=== PATIENT | female | born 1950 | race Caucasian/White ===

== ENCOUNTER 2020-04-08 09:57 | Outpatient (REF) | payer MEDICARE, MEDICAID, SELFPAY ==
[2020-04-08 11:44] LABS: Anion Gap 12 (12-20); Blood Urea Nitrogen 10 mg/dL (9-16); Calcium 9.7 mg/dL (8.4-10.2); Carbon Dioxide 29 mmol/L (22-29); Chloride 104 mmol/L (96-108); Estimated Glomerular Filt Rate > 60; Glucose Random 100 mg/dL (60-115); Potassium 5.3 mmol/l (3.3-5.1); Sodium 140 mmol/L (135-145)
== END 2020-04-08 09:58 | disposition home or self-care (01) ==
LOC: HO.HMGCLDS 09:57
PROVIDERS: PCP Internal Medicine; Visit Provider Internal Medicine
DX: E87.5 Hyperkalemia (principal)
CPT/HCPCS: 36415; 80048

== ENCOUNTER 2020-04-21 15:14 | Outpatient (REF) | payer MEDICARE, MEDICAID, SELFPAY ==
[2020-04-21 16:54] LABS: Potassium 4.9 mmol/l (3.3-5.1)
== END 2020-04-21 15:15 | disposition home or self-care (01) ==
LOC: HO.HMGCLDS 15:14
PROVIDERS: PCP Internal Medicine; Visit Provider Internal Medicine
DX: E87.5 Hyperkalemia (principal)
CPT/HCPCS: 84132

== ENCOUNTER 2021-06-20 12:21 | Outpatient (REF) | payer MEDICARE, MEDICAID, SELFPAY ==
--- NOTE | ~2021-06-20 | XR_ITS ---
EXAMINATION: XR CHEST CLINICAL INFORMATION: E78.5 - Hyperlipidemia, unspecified COMPARISON: None TECHNIQUE: Frontal view of the chest was obtained. FINDINGS: The heart is normal in size. The vascularity is normal. There is no airspace consolidation or effusion. Tapering cardiac apex is consistent with areolar tissue. The costophrenic sulci are clear. The hilar and mediastinal contours are normal. Bony structures show mild levocurvature lower thoracic spine. XR/XR chest 1V IMPRESSION: Unremarkable examination.
[2021-06-20 13:43] LABS: Hematocrit 45.8 % (37.0-47.0); Hemoglobin 14.7 g/dl (12.0-16.0); Mean Corpuscular HGB Conc 32.1 g/dl (31.0-35.0); Mean Corpuscular Hemoglobin 30.4 pg (27.0-33.0); Mean Corpuscular Volume 94.8 fL (80.0-98.0); Mean Platelet Volume 11.3 fL (9.4-12.3); Platelet Count 236 X10*3/uL (160-400); Red Blood Count 4.83 X10*6/uL (4.20-5.50); Red Cell Distribution Width 12.2 % (11.0-16.0); White Blood Count 8.5 X10*3/uL (4.8-10.8)
[2021-06-20 14:07] LABS: Alanine Aminotransferase 21 U/L (0-31); Albumin Level 4.6 g/dL (3.5-5.0); Alkaline Phosphatase 79 U/L (39-117); Anion Gap 13 (12-20); Aspartate Amino Transferase 21 U/L (5-31); Bilirubin Total 0.2 mg/dL (0.0-1.0); Blood Urea Nitrogen 10 mg/dL (9-16); Carbon Dioxide 29 mmol/L (22-29); Chloride 102 mmol/L (96-108); Cholesterol 194 mg/dL; Estimated Glomerular Filt Rate > 60; Glucose Fasting 113 mg/dL (60-99); HDL Cholesterol 57 mg/dL; LDL Cholesterol Calculated 111 mg/dl; Potassium 4.7 mmol/L (3.3-5.1); Sodium 139 mmol/L (135-145); Total Protein 7.6 g/dL (6.5-8.0); Triglycerides 134 mg/dL
[2021-06-20 14:28] LABS: TSH reflex Free T4 0.95 uIU/mL (0.32-4.0)
== END 2021-06-20 12:22 | disposition home or self-care (01) ==
LOC: HO.HMGCLDS 12:21
PROVIDERS: PCP Internal Medicine; Visit Provider Internal Medicine
DX: E78.5 Hyperlipidemia, unspecified (principal); F32.9 Major depressive disorder, single episode, unspecified; F41.9 Anxiety disorder, unspecified; I10 Essential (primary) hypertension
CPT/HCPCS: 36415; 71045; 80053; 80061; 84443; 85027